=== PATIENT | female | born 1975 | race Hispanic/Latino ===

== ENCOUNTER → 2016-07-15 | Outpatient (CLI) | payer MEDICAID, OTHER ==
[2016-07-15 12:21] LABS: BASO % 0.2 % (0.0-1.0); EOS # 0.1 K/mm3 (0.0-0.50); EOS % 1.3 % (0.0-3.0); LARGE UNSTAINED CELL # 0.1 K/mm3 (0.0-0.4); LARGE UNSTAINED CELL % 1.3 % (0.0-4.0); LYMPH # 1.8 K/mm3 (1.5-4.5); MEAN CORPUSCULAR HEMOGLOBIN 32.3 pg (27.0-33.0); MEAN CORPUSCULAR HGB CONC 34.2 g/dl (32.0-36.5); MEAN CORPUSCULAR VOLUME 94.5 fl (80.0-96.0); MONO # 0.3 K/mm3 (0.0-0.8); NEUTROPHILS # 4.1 K/mm3 (1.8-7.7); NEUTROPHILS % 65.1 % (36.0-66.0); PLATELET COUNT, AUTOMATED 204 k/mm3 (150-450); RED CELL DISTRIBUTION WIDTH 13.1 % (11.5-14.5); WHITE BLOOD COUNT 6.2 K/mm3 (4.0-10.0)
[2016-07-16 10:22] LABS: HBsAg Prenatal NEGATIVE (NEGATIVE)
== END ==
LOC: M LAB 09:28
PROVIDERS: ATTEND Obstetrics & Gynecology
DX: Z34.81 Encounter for supervision of other normal pregnancy, first trimester (principal)

== ENCOUNTER → 2016-08-31 | Outpatient (REF) | payer OTHER | LOC: M LAB REF 12:45 | PROVIDERS: ATTEND Specialist | DX: Z34.81 Encounter for supervision of other normal pregnancy, first trimester (principal) ==

== ENCOUNTER 2016-09-09 23:06 | Emergency (ER) | payer OTHER ==
[~2016-09-09] VITALS: Ht 152.4 cm; Wt 62.1 kg
--- NOTE | 2016-09-10 02:50 | REPUSA ---
CLINICAL HISTORY: Bleeding. TECHNIQUE: Transabdominal ultrasound of the pelvis was performed. FINDINGS: Single, live intrauterine gestation. Estimated gestational age is 12 weeks and 6 days. [place] rump length 64 mm. heart rate 139 beats per minute. motion was observed. Anterior placenta. No evidence of placenta previa. Unremarkable maternal adnexa. No free fluid in the pelvic cul-de-sac. Estimated delivery date on 03/19/2017. 2 uterine fibroids are noted. Right fibroid measuring 5.8x5.1x5 cm. And the left fibroid measuring 4. 6x4.1 cm. IMPRESSION: Single intrauterine gestation.
[2016-09-10 04:06] VITALS: BP 91/55
== END 2016-09-10 04:07 | disposition home or self-care (01) ==
LOC: M ED 09-10 01:15
DX: O20.0 Threatened abortion (principal); O34.11 Maternal care for benign tumor of corpus uteri, first trimester; D25.9 Leiomyoma of uterus, unspecified; Z79.899 Other long term (current) drug therapy; Z3A.12 12 weeks gestation of pregnancy

== ENCOUNTER 2016-09-17 16:32 | Emergency (ER) | payer OTHER ==
[~2016-09-17] VITALS: Ht 162.6 cm; Wt 61.8 kg
[2016-09-17 17:27] LABS: BASO % 0.4 % (0.0-1.0); EOS # 0.1 K/mm3 (0.0-0.50); EOS % 0.9 % (0.0-3.0); LARGE UNSTAINED CELL # 0.1 K/mm3 (0.0-0.4); LARGE UNSTAINED CELL % 2.1 % (0.0-4.0); LYMPH # 2.2 K/mm3 (1.5-4.5); LYMPH % 32.8 % (24.0-44.0); MEAN CORPUSCULAR HEMOGLOBIN 32.7 pg (27.0-33.0); MEAN CORPUSCULAR HGB CONC 34.7 g/dl (32.0-36.5); MEAN CORPUSCULAR VOLUME 94.1 fl (80.0-96.0); MONO # 0.4 K/mm3 (0.0-0.8); MONO % 5.3 % (0.0-5.0); NEUTROPHILS # 3.9 K/mm3 (1.8-7.7); NEUTROPHILS % 58.6 % (36.0-66.0); PLATELET COUNT, AUTOMATED 212 k/mm3 (150-450); RED CELL DISTRIBUTION WIDTH 12.2 % (11.5-14.5); WHITE BLOOD COUNT 6.7 K/mm3 (4.0-10.0)
[2016-09-17 17:33] LABS: INR 0.97
[2016-09-17 17:45] LABS: CONTROL LINE HCG INT CTR LINE PRESENT
[2016-09-17 17:52] LABS: ANION GAP 7 MEQ/L (8-16); BLOOD UREA NITROGEN 8 MG/DL (7-18); CALCIUM LEVEL 8.8 MG/DL (8.5-10.1); CARBON DIOXIDE LEVEL 27 MEQ/L (21-32); CHLORIDE LEVEL 103 MEQ/L (98-107); CREATININE FOR GFR 0.43 MG/DL (0.55-1.02); GLOMERULAR FILTRATION RATE > 60.0 (>60); GLUCOSE, FASTING 96 MG/DL (70-105); POTASSIUM SERUM 3.7 MEQ/L (3.5-5.1); SODIUM LEVEL 137 MEQ/L (136-145)
[2016-09-17 18:37] LABS: HCG, SERUM QUANTITATIVE 972 MIU/ML
[2016-09-17 19:36] VITALS: BP 118/67
--- NOTE | 2016-09-17 20:38 | REP ---
Obstetric sonography: History: Vaginal bleeding. Comparison study September 10, 2016. Findings: Scanning demonstrates a single living intrauterine gestation in a variable lie. motion is observed and heart rate is recorded at 132 beats per minute. Amniotic fluid is subjectively normal. There is a cyst in the maternal right ovary measuring 1.4 cm in greatest diameter. There is evidence of a 5.3 x 4.8 x 4.5 cm fibroid to the left of midline in the uterus. A 1.8 x 2.0 x 1.6 cm area of myometrial thickening is also noted anteriorly. This may be fibroid or uterine contraction. The fibroids are in the region of the lower uterine segment and the cervix is not well seen as a result. The placenta is again noted to be anterior. It is too early for anatomic screening. Biometry chart: BPD 2.7 cm = 14 weeks 6 days HC 9.7 cm = 14 weeks 3 days AC 6.6 cm = 13 weeks 2 days FL 1.4 cm = 14 weeks 0 days HL 1.3 cm = 13 weeks 4 days HC/AC ratio 1.47 (1.11-1.30. Cephalic index normal 0.80. Estimated weight 82 grams, 0 pounds 2 ounces, less than 3rd percentile for 14 weeks 5 days. Impression: Viable single intrauterine gestation at 14 weeks 0 days by today's criteria. Expected gestational age estimate based on prior sonography is 14 weeks 5 days. PÉREZ by prior sonography March 13, 2017. Two uterine fibroids are again seen measuring 5.3 and 2.0 cm in greatest diameter respectively. Anterior placenta. Cervix not well visualized. Signed by Yousuf Dumont MD 09/18/2016 07:43 A
== END 2016-09-17 19:40 | disposition home or self-care (01) ==
LOC: M ED 17:20
DX: O20.0 Threatened abortion (principal); O34.11 Maternal care for benign tumor of corpus uteri, first trimester; D25.9 Leiomyoma of uterus, unspecified; O09.522 Supervision of elderly multigravida, second trimester; Z3A.14 14 weeks gestation of pregnancy

== ENCOUNTER → 2016-09-23 | Outpatient (CLI) | payer OTHER | LOC: M SMT 08:42 | PROVIDERS: ATTEND Specialist | DX: Z13.79 Encounter for other screening for genetic and chromosomal anomalies (principal) ==

== ENCOUNTER 2016-10-01 16:50 | Emergency (ER) | payer OTHER ==
[~2016-10-01] VITALS: Ht 160 cm; Wt 62.5 kg
[2016-10-01] MEDS ORDERED: PREN1TAB11 PO (17:20)
[2016-10-01] MEDS ORDERED: ACETAMINOPHEN 325 MG TAB PO ONE (18:00)
[2016-10-01] MEDS ORDERED: NS 1,000 ML IV ONE (18:15)
[2016-10-01 18:30] LABS: BASO % 0.3 % (0.0-1.0); EOS # 0.1 K/mm3 (0.0-0.50); EOS % 1.6 % (0.0-3.0); LARGE UNSTAINED CELL # 0.1 K/mm3 (0.0-0.4); LARGE UNSTAINED CELL % 2.1 % (0.0-4.0); LYMPH # 2.2 K/mm3 (1.5-4.5); MEAN CORPUSCULAR HEMOGLOBIN 32.6 pg (27.0-33.0); MEAN CORPUSCULAR HGB CONC 34.9 g/dl (32.0-36.5); MEAN CORPUSCULAR VOLUME 93.5 fl (80.0-96.0); MONO # 0.3 K/mm3 (0.0-0.8); NEUTROPHILS # 3.5 K/mm3 (1.8-7.7); PLATELET COUNT, AUTOMATED 229 k/mm3 (150-450); WHITE BLOOD COUNT 6.2 K/mm3 (4.0-10.0)
[2016-10-01 19:01] LABS: ANION GAP 7 MEQ/L (8-16); BLOOD UREA NITROGEN 9 MG/DL (7-18); CALCIUM LEVEL 9.1 MG/DL (8.5-10.1); CARBON DIOXIDE LEVEL 27 MEQ/L (21-32); CHLORIDE LEVEL 106 MEQ/L (98-107); CREATININE FOR GFR 0.38 MG/DL (0.55-1.02); GLOMERULAR FILTRATION RATE > 60.0 (>60); GLUCOSE, FASTING 90 MG/DL (70-105); HCG, SERUM QUANTITATIVE 352 MIU/ML; POTASSIUM SERUM 3.9 MEQ/L (3.5-5.1); SODIUM LEVEL 140 MEQ/L (136-145)
--- NOTE | 2016-10-01 19:10 | REPUSA ---
OBSTETRICAL ULTRASOUND INDICATION: OB screening. Vaginal bleeding. FINDINGS: A single live intrauterine gestation was identified with a heart rate of 139 bpm. Th e amniotic fluid volume appears below normal limits. The placenta was anterior, without evidence of placenta previa. Several uterine fibroids are noted. The cervix measures 2.7 cm in length and is beatris sed. Estimated weight is 112 g. Limited visualized anatomy is unremarkable. BIOMETRIC MEASUREMENTS BPD 3.2 cm HC 12.9 cm AC 7.8 cm FL 1.8 cm IMPRESSION: 1. Single live fetus based on today's measurements at 15 weeks 4 days, with estimated due date of . 2. No gross abnormality appreciated.. 3. Suspected oligohydramnios. Follow-up is recommended as clinically indicated. 4. Leiomyomatous uterus.
[2016-10-01 21:14] VITALS: BP 116/62
== END 2016-10-01 21:16 | disposition home or self-care (01) ==
LOC: M ED 16:50
DX: O20.9 Hemorrhage in early pregnancy, unspecified (principal); Z3A.15 15 weeks gestation of pregnancy

== ENCOUNTER → 2016-10-01 | Outpatient (CLI) | payer OTHER ==
[~2016-10-01] MED LIST: PREN1TAB11 PO
== END ==
LOC: M LAB 16:13
PROVIDERS: ATTEND Specialist
DX: O09.521 Supervision of elderly multigravida, first trimester (principal); Z36 Encounter for antenatal screening of mother; D25.9 Leiomyoma of uterus, unspecified; Z3A.15 15 weeks gestation of pregnancy

== ENCOUNTER → 2016-10-14 | Outpatient (CLI) | payer OTHER ==
--- NOTE | 2016-10-14 15:47 | REP ---
Obstetric sonography: History: Supervision of for anatomy. Findings: Scanning through the gravid uterus demonstrates a nonviable intrauterine gestation in a breech lie. No motion or heart motion was detected. There is some molding of the cranial vault. Closed cervical length is 3.5 cm. No extrauterine abnormalities observed. Oligohydramnios is seen. Placenta appears to be predominantly anterofundal. A posterior uterine leiomyoma is seen measuring 3.7 x 4.4 x 4.5 cm. measurement chart: BPD 2.9 cm = 15 weeks 2 days Head circumference 10.7 cm = 15 weeks 1 day Humeral length 1.7 cm = 14 weeks 5 days Impression: 1. Intrauterine demise at approximate 15 weeks 0 days. 2. Expected gestational age estimate based on prior sonography is 17 weeks 5 days, PÉREZ based on prior sonography March 19, 2017. 3. Oligohydramnios. 4. Uterine leiomyoma measuring 3.7 x 4.4 x 4.5 cm. Signed by Yousuf Dumont MD 10/14/2016 04:50 P
== END ==
LOC: M RAD 14:39
PROVIDERS: ATTEND Specialist
DX: Z36 Encounter for antenatal screening of mother (principal); Z3A.15 15 weeks gestation of pregnancy

== ENCOUNTER → 2016-10-15 | Outpatient (REF) | payer OTHER ==
[2016-11-01 06:40] LABS: CHROMPC1 SEE SEPARATE REPORT
== END ==
LOC: M LAB REF 18:50
PROVIDERS: ATTEND Obstetrics & Gynecology
DX: O03.9 Complete or unspecified spontaneous abortion without complication (principal)

== ENCOUNTER → 2016-10-25 | Outpatient (CLI) | payer OTHER ==
--- NOTE | 2016-10-26 04:49 | REP ---
Clinical: Evaluate for retained products of conception. Technique: Transabdominal pelvic ultrasound followed by transvaginal examination for better evaluation of the endometrium and adnexa with color Doppler evaluation of the ovaries. Findings: Bladder is unremarkable and measures 9.5 x 5.2 x 6.0 cm . Anteverted uterus measures 10.1 x 4.3 x 7.2 cm. The endometrial complex measures 8.2 mm thickness, and retained products of conception cannot definitively be excluded. Heterogeneous right intramural / subserosal fibroid measures 5.2 x 4.2 x 4.9 cm. Bilateral ovaries are normal in appearance and vascularity without evidence for torsion. Right ovary measures 2.8 x 1.7 x 2.7 cm ; R I = 0.56 . Left ovary measures 2.5 x 2.0 x 2.9 cm ; R I = 0.57 . No pelvic fluid or adnexal mass lesion . Impression: 1. Complex appearance the endometrium measuring 8.2 mm, and retained products of conception cannot be excluded. 2. 5.2 cm right sided fibroid. Signed by Perez Christian MD 10/26/2016 04:41 A
== END ==
LOC: M RAD 10:12
PROVIDERS: ATTEND Obstetrics & Gynecology
DX: O73.1 Retained portions of placenta and membranes, without hemorrhage (principal); R30.0 Dysuria; D25.9 Leiomyoma of uterus, unspecified

== ENCOUNTER → 2016-10-26 | Outpatient (CLI) | payer OTHER ==
[2016-10-26 18:10] LABS: FREE T4 1.08 NG/DL (0.76-1.46)
[2016-10-26 18:18] LABS: LUTEINIZING HORMONE 6.6 mIU/mL
[2016-10-26 18:19] LABS: FOLLICLE STIMULATING HORMONE 7.4 mIU/mL
== END ==
LOC: M SMT 14:08
PROVIDERS: ATTEND Obstetrics & Gynecology
DX: N96 Recurrent pregnancy loss (principal)

== ENCOUNTER → 2016-11-16 | Outpatient (REF) | payer OTHER | LOC: M LAB REF 13:06 | PROVIDERS: ATTEND Obstetrics & Gynecology | DX: R30.0 Dysuria (principal) ==

== ENCOUNTER → 2016-12-28 | Outpatient (CLI) | payer OTHER ==
[2016-12-28 10:03] LABS: MEAN CORPUSCULAR HEMOGLOBIN 31.5 pg (27.0-33.0); MEAN CORPUSCULAR VOLUME 95.6 fl (80.0-96.0); RED CELL DISTRIBUTION WIDTH 12.8 % (11.5-14.5); WHITE BLOOD COUNT 5.5 10^3/uL (4.0-10.0)
[2016-12-28 10:35] LABS: ALBUMIN 4.1 GM/DL (3.2-5.2); ALBUMIN/GLOBULIN RATIO 1.28 (1.00-1.93); ALKALINE PHOSPHATASE 63 U/L (45-117); ALT/SGPT 22 U/L (12-78); ANION GAP 6 MEQ/L (8-16); AST/SGOT 10 U/L (15-37); BILIRUBIN,TOTAL 0.3 MG/DL (0.2-1.0); BLOOD UREA NITROGEN 14 MG/DL (7-18); CALCIUM LEVEL 9.2 MG/DL (8.5-10.1); CARBON DIOXIDE LEVEL 28 MEQ/L (21-32); CHLORIDE LEVEL 107 MEQ/L (98-107); CHOLESTEROL LEVEL 221 MG/DL (<200); CREATININE FOR GFR 0.49 MG/DL (0.55-1.02); GLOMERULAR FILTRATION RATE > 60.0 (>60); GLUCOSE, FASTING 85 MG/DL (70-105); PERCENT SATURATION 28.8 % (13.2-45.0); POTASSIUM SERUM 4.3 MEQ/L (3.5-5.1); SODIUM LEVEL 141 MEQ/L (136-145); TOTAL IRON BINDING CAPACITY 309 UG/DL (250-450); TOTAL PROTEIN 7.3 GM/DL (6.4-8.2); TRIGLYCERIDES LEVEL 98 MG/DL (<150)
== END ==
LOC: M LAB 09:07
PROVIDERS: ATTEND Family Medicine
DX: D64.9 Anemia, unspecified (principal); R53.83 Other fatigue

== ENCOUNTER → 2017-01-03 | Outpatient (CLI) | payer OTHER ==
[~2017-01-03] MED LIST changes: +E-Z-GAS II EFFERVESCENT PACKET (SODIUM BICARB./CITRIC ACID/SIMETHICONE) As Ordered ONE; +E-Z-HD 98% w/w 340GM SUSP BTL As Ordered ONE; +E-Z-PAQUE 96% w/w SUSP 176GM BTL As Ordered ONE
--- NOTE | 2017-01-03 10:05 | REP ---
Right upper quadrant sonography: History: Epigastric pain. Findings: Scanning through the right upper quadrant of the abdomen demonstrates an unremarkable pancreas. The tail is partially obscured by abdominal gas. A normal size thin-wall gallbladder is seen. This contains a nonshadowing echogenic structure which is on its dependent wall. This may reflect a "sludge ball" versus a small polyp. It measures 5 mm in greatest diameter. There is a 1.2 cm hyperechoic lesion in the right lobe of the liver consistent with small benign hemangioma. No other liver mass lesion is observed. There is no evidence of ascites or right renal abnormality. The right kidney measures 11.2 x 5.4 x 3.8 cm. Impression: Sludge ball versus 5 mm polyp in the gallbladder. 1.2 cm hemangioma of the right lobe of the liver. Otherwise negative right upper quadrant sonography. Signed by oYusuf Dumont MD 01/03/2017 03:03 P
--- NOTE | 2017-01-03 10:29 | REP ---
PA and lateral chest: There are no comparisons. The lung sarah are clear. The cardiac size is normal The radha, mediastinum, and bony thorax are unremarkable. Impression: Negative PA and lateral chest. Signed by Fran Bruce MD 01/03/2017 10:20 A
--- NOTE | 2017-01-03 17:10 | REP ---
Upper GI air contrast The procedure was performed under the direct supervision of Dr. Dumont. The images were reviewed with Dr. Dumont. The developmental specialist film shows no organomegaly or pathological masses. The intestinal gas pattern is nonspecific. Liquid barium and gas producing crystals were given in the erect position as well as liquid barium in the prone oblique position in order to perform a double contrast upper GI examination. The oral and pharyngeal stages of deglutition are unremarkable. Esophageal transport is prompt and efficient and there is no esophagitis or stricture mucosal ring or hiatal hernia. Gastroesophageal reflux is not demonstrated on this examination. The stomach schneider are normally outlined . The rugal folds are smooth and regular. There is no gastritis neoplasm or ulcer disease. The duodenal schneider are normally outlined . The mucosal folds are smooth and regular. There is no duodenitis pancreatitis peptic ulcer disease or neoplasm. The visualized portion of the proximal small bowel appears normal in course and caliber. There is a small diverticulum in the transverse portion of the duodenum. Impression: There is a small diverticulum in the transverse portion of the duodenum, otherwise, unremarkable double contrast upper GI examination. 1 minute and 53 seconds of fluoro time was utilized for this procedure. Reviewed by RAUL Morrison 01/03/2017 04:12 PSigned by Yousuf Dumont MD 01/03/2017 05:01 P
== END ==
LOC: M RAD 08:41
PROVIDERS: ATTEND Family Medicine
DX: R10.13 Epigastric pain (principal); R13.10 Dysphagia, unspecified; R07.89 Other chest pain

== ENCOUNTER → 2017-05-04 | Outpatient (CLI) | payer OTHER ==
[2017-05-04 20:37] LABS: ESTRADIOL 56.6 PG/ML
[2017-05-04 20:37] LABS: LUTEINIZING HORMONE 3.8 mIU/mL; PROLACTIN 13.1 NG/ML
[2017-05-04 20:38] LABS: FOLLICLE STIMULATING HORMONE 4.7 mIU/mL
[2017-05-04 20:50] LABS: FREE T4 1.07 NG/DL (0.76-1.46); THYROID STIMULATING HORMONE 0.847 uIU/ML (0.358-3.740)
== END ==
LOC: M SMT 13:35
DX: N92.6 Irregular menstruation, unspecified (principal)
CPT/HCPCS: 83001

== ENCOUNTER → 2017-05-23 | Outpatient (CLI) | payer OTHER ==
[2017-05-23 17:16] LABS: PROGESTERONE 22.1 NG/ML
== END ==
LOC: M LAB 15:45
DX: N92.6 Irregular menstruation, unspecified (principal)
CPT/HCPCS: 84144

== ENCOUNTER → 2018-02-08 | Outpatient (CLI) | payer MEDICAID, SELFPAY, OTHER | LOC: M RAD 09:15 | DX: Z12.31 Encounter for screening mammogram for malignant neoplasm of breast (principal); Z80.3 Family history of malignant neoplasm of breast; N60.31 Fibrosclerosis of right breast; N60.32 Fibrosclerosis of left breast | CPT/HCPCS: 77067 ==

== ENCOUNTER → 2018-04-26 | Outpatient (REF) | payer SELFPAY ==
[~2018-04-26] MED LIST changes: -E-Z-GAS II EFFERVESCENT PACKET (SODIUM BICARB./CITRIC ACID/SIMETHICONE) As Ordered ONE; -E-Z-HD 98% w/w 340GM SUSP BTL As Ordered ONE; -E-Z-PAQUE 96% w/w SUSP 176GM BTL As Ordered ONE; +LETR2.5T2 PO; +LIDO1PAD TOP; +NORCOTAB PO; +VALI5TAB PO
[2018-04-28 14:42] LABS: HPV HYBRID CAPTURE II Negative (Negative)
== END ==
LOC: M LAB REF 12:15
PROVIDERS: ATTEND Specialist
DX: Z12.4 Encounter for screening for malignant neoplasm of cervix (principal)

== ENCOUNTER 2018-05-15 17:30 | Emergency (ER) | payer MEDICAID, OTHER, SELFPAY ==
[~2018-05-15] VITALS: Ht 160 cm; Wt 56.8 kg
[2018-05-15 17:30] VITALS: BP 104/52
[~2018-05-15 17:30] MED LIST changes: -LETR2.5T2 PO; -LIDO1PAD TOP; -NORCOTAB PO; -VALI5TAB PO
[2018-05-15] MEDS ORDERED: LETR2.5T2 PO (17:43)
[2018-05-15] MEDS ORDERED: diazePAM 10 MG TAB PO ONE (20:00)
[2018-05-15] MEDS ORDERED: KETOROLAC 60 MG/2 ML VIAL (J1885) IM ONE (20:00)
[2018-05-15] MEDS ORDERED: NORCO, ANEXSIA 5/325MG TABLET (HYDROcodone/ACETAMINOPHEN) PO ONE (22:00)
--- NOTE | 2018-05-15 22:09 | REPVR ---
EXAM: CT Lumbar Spine Without Contrast EXAM DATE/TIME: 05/15/2018 8:25 PM CLINICAL HISTORY: 42 years old, female; Pain; Low back pain; Additional info: PT tender, radiating to right leg TECHNIQUE: Axial computed tomography images of the lumbar spine without intravenous contrast. All CT scans at this facility use at least one of these dose optimization techniques: automated exposure control; mA and/or kV adjustment per patient size (includes targeted exams where dose is matched to clinical indication); or iterative reconstruction. Coronal and sagittal reformatted images were created and reviewed. COMPARISON: No relevant prior studies available. FINDINGS: No evidence of soft tissue abnormality. There is sclerosis and osteophyte formation of the SI joints. L5-S1: There is a large right paracentral disc extrusion with mild inferior migration of disc causing severe impression on the anterior right thecal sac and right S1 nerve. L4-L5: There is mild broad-based bulge of the disc. IMPRESSION: The L5-S1 level demonstrates large right paracentral disc extrusion with inferior migration of disc causing severe impression on the anterior right thecal sac and right S1 nerve root. Electronically signed by: Myron Rebolledo On 05/15/2018 22:08:58 PM
[2018-05-15] MEDS ORDERED: LIDO1PAD TOP (23:05)
[2018-05-15] MEDS ORDERED: NORCOTAB PO (23:05)
[2018-05-15] MEDS ORDERED: VALI5TAB PO (23:05)
[2018-05-15] MEDS ORDERED: NORCO 5/325MG TABLET (BULK FOR ED) PO ONE (23:15)
--- NOTE | 2018-05-16 12:35 | ED PDOC ---
Post-Departure Follow-Up dr john faxed formal report of ct ls spine for fu Marilynn Myers MD May 16, 2018 12:35
== END 2018-05-15 23:17 | disposition home or self-care (01) ==
LOC: M ED 17:30
DX: M51.17 Intervertebral disc disorders with radiculopathy, lumbosacral region (principal)
CPT/HCPCS: 72131; 81001; 81025; 96372; 99284; J1885

== ENCOUNTER 2018-06-26 07:51 | Outpatient (RCR) | payer SELFPAY ==
[~2018-06-26 07:51] MED LIST changes: +LETR2.5T2 PO; +LIDO1PAD TOP; +NORCOTAB PO; +VALI5TAB PO
== END 2018-07-02 ==
LOC: M PT 07:51
PROVIDERS: ATTEND Physician Assistant
DX: Z47.89 Encounter for other orthopedic aftercare (principal); M51.36 Other intervertebral disc degeneration, lumbar region; M47.896 Other spondylosis, lumbar region

== ENCOUNTER 2018-07-25 08:00 | Outpatient (RCR) | payer SELFPAY ==
[~2018-07-25 08:00] MED LIST changes: +HYDR-3715 PO; -NORCOTAB PO
== END 2018-08-01 ==
LOC: M PT 08:00
PROVIDERS: ATTEND Physician Assistant
DX: M54.5 Low back pain (principal)

== ENCOUNTER 2018-08-02 07:54 | Outpatient (RCR) | payer SELFPAY | END 2018-09-01 | LOC: M PT 07:54 | PROVIDERS: ATTEND Physician Assistant | DX: M51.36 Other intervertebral disc degeneration, lumbar region (principal) ==

== ENCOUNTER → 2019-01-11 | Outpatient (CLI) | payer MEDICAID, SELFPAY | LOC: M LAB 14:08 | PROVIDERS: ATTEND Obstetrics & Gynecology | DX: N96 Recurrent pregnancy loss (principal) ==

== ENCOUNTER → 2019-03-20 | Outpatient (CLI) | payer OTHER ==
[~2019-03-20] MED LIST changes: +OXYC1TAB23 PO; +PRENTAB53 PO
[2019-03-20 08:28] LABS: HEMATOCRIT 39.9 % (36.0-47.0); HEMOGLOBIN 12.8 g/dl (12.0-15.5); MEAN CORPUSCULAR HEMOGLOBIN 31.2 pg (27.0-33.0); MEAN CORPUSCULAR HGB CONC 32.1 g/dl (32.0-36.5); MEAN CORPUSCULAR VOLUME 97.3 fl (80.0-96.0); PLATELET COUNT, AUTOMATED 259 10^3/uL (150-450); WHITE BLOOD COUNT 6.7 10^3/uL (4.0-10.0)
[2019-03-20 09:04] LABS: ALBUMIN 3.8 GM/DL (3.2-5.2); ALT/SGPT 19 U/L (12-78); BILIRUBIN,TOTAL 0.4 MG/DL (0.2-1.0); BLOOD UREA NITROGEN 13 MG/DL (7-18); CALCIUM LEVEL 8.2 MG/DL (8.5-10.1); CARBON DIOXIDE LEVEL 24 MEQ/L (21-32); CHLORIDE LEVEL 109 MEQ/L (98-107); CHOLESTEROL LEVEL 240 MG/DL (<200); CHOLESTEROL RISK RATIO 4.705 (<5); CREATININE FOR GFR 0.57 MG/DL (0.55-1.30); GLOMERULAR FILTRATION RATE > 60.0 (>58); GLUCOSE, FASTING 89 MG/DL (70-100); HDL CHOLESTEROL 51 MG/DL (>40); LDL CHOLESTEROL 169 MG/DL (<100); NON-HDL-C 189 MG/DL; SODIUM LEVEL 142 MEQ/L (136-145); THYROXINE (T4) 8.9 UG/DL (4.5-12.0); TOTAL PROTEIN 6.9 GM/DL (6.4-8.2); TRIGLYCERIDES LEVEL 98 MG/DL (<150)
[2019-03-20 10:01] LABS: TOTAL 25(OH) VITAMIN D 40.7 NG/ML (30.0-100.0); TOTAL T3 103.3 NG/DL (60.0-181.0)
--- NOTE | 2019-03-20 11:21 | ECGEPIP ---
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
--- NOTE | 2019-03-20 15:34 | REP ---
Chest x-ray: Two views. History: Hypothyroid, hypertension . Comparison study: January 03, 2017 . Findings: The lungs are well inflated and free of infiltrate. The pleural angles are sharp. The heart size is normal. Pulmonary vasculature is not increased. No significant bony abnormality is seen. Impression: Negative chest x-ray. Electronically Signed by Yousuf Dumont MD 03/20/2019 08:04 A
== END ==
LOC: M LAB 07:39
PROVIDERS: ATTEND Family Medicine
DX: E03.9 Hypothyroidism, unspecified (principal); R53.83 Other fatigue

== ENCOUNTER → 2019-03-23 | Outpatient (CLI) | payer OTHER ==
[~2019-03-23] MED LIST changes: +IBUP-1022 PO
--- NOTE | 2019-03-23 10:58 | REPMRS ---
Patient History The patient states she has not had a clinical breast exam in over a year. Family history of breast cancer at age 58 in mother. Digital Mammo Screening Bilat: March 23, 2019 - Exam #: [id number] Bilateral CC and MLO view(s) were taken. Technologist: Susie Ocasio Technologist Prior study comparison: February 08, 2018, bilateral digital mammo screening bilat performed at [facility]. June 02, 2016, bilateral digital mammo screening bilat, [facility]. February 21, 2014, bilateral digital mammo screening bilat, performed [facility]. FINDINGS: The breast tissue is heterogeneously dense. This may lower the sensitivity of mammography. There is a moderate amount of heterogeneously dense fibroglandular tissue which is fairly symmetric. There is no interval development of dominant mass, architectural distortion, or grouped microcalcification typical of malignancy. There has been no change in the appearance of the mammogram from the prior studies. 3-D tomosynthesis shows no additional findings. Assessment: BI-RADS/ACR category 1 mammogram. Negative Mammogram. Recommendation Breast MRI of both breasts in 6 months. Routine screening mammogram of both breasts in 1 year (for women over age 40). This patient's Lifetime Breast Cancer RIsk is estimated at 22.8 %. Annual screening Breast MRI scanniing is recommended for patient's whose lifetime risk assessment is over 20%. This mammogram was interpreted with the aid of an FDA-approved computer-aided dectection system. Electronically Signed By: Bar Dumont MD 03/23/19 [id number]
== END ==
LOC: M RAD 09:31
PROVIDERS: ATTEND Obstetrics & Gynecology
DX: Z12.31 Encounter for screening mammogram for malignant neoplasm of breast (principal); Z80.3 Family history of malignant neoplasm of breast

== ENCOUNTER 2019-03-26 06:02 | Day surgery (SDC) | payer OTHER ==
[~2019-03-26] VITALS: Ht 157.5 cm; Wt 59.9 kg
[~2019-03-26 06:02] MED LIST changes: -IBUP-1022 PO; +LIDOCAINE 1% MDV 20ML VIAL SQ PRN; +LR 1,000 ML IV ONE
[2019-03-26 06:41] LABS: HEMATOCRIT 37.2 % (36.0-47.0); HEMOGLOBIN 12.2 g/dl (12.0-15.5); MEAN CORPUSCULAR HEMOGLOBIN 31.8 pg (27.0-33.0); MEAN CORPUSCULAR HGB CONC 32.8 g/dl (32.0-36.5); MEAN CORPUSCULAR VOLUME 96.9 fl (80.0-96.0); PLATELET COUNT, AUTOMATED 223 10^3/uL (150-450); RED BLOOD COUNT 3.84 10^6/uL (4.00-5.40); WHITE BLOOD COUNT 6.9 10^3/uL (4.0-10.0)
[2019-03-26] MEDS ORDERED: ONDANSETRON 4MG/2ML VIAL (J2405) As Ordered ONE (07:01)
[2019-03-26] MEDS ORDERED: LIDOCAINE 2% INJ 100 MG/5 ML SDV (FOR ANES.) As Ordered ONE (07:01)
[2019-03-26] MEDS ORDERED: KETOROLAC 60 MG/2 ML VIAL (J1885) As Ordered ONE (07:01)
[2019-03-26] MEDS ORDERED: dexameTHASONE 4 MG/ML 1ML VIAL (J1100) As Ordered ONE (07:01)
[2019-03-26] MEDS ORDERED: PROPOFOL 200 MG/20 ML VIAL As Ordered ONE (07:01)
[2019-03-26] MEDS ORDERED: ROCURONIUM BROMIDE 50 MG/5 ML VIAL As Ordered ONE (07:01)
[2019-03-26] MEDS ORDERED: fentaNYL 250 MCG/5 ML INJECTION (J3010) As Ordered ONE (07:08)
[2019-03-26] MEDS ORDERED: MIDAZOLAM INJ 2 MG/2 ML VIAL (J2250) As Ordered ONE (07:08)
[2019-03-26] MEDS ORDERED: BUPIVACAINE HCL 0.25% 10 ML VIAL As Ordered ONE (07:09)
[2019-03-26] MEDS ORDERED: BUPIVACAINE HCL 0.25% 30 ML VIAL As Ordered ONE (07:12)
[2019-03-26] MEDS ORDERED: LACRILUBE (AKWA TEARS) OPHTH OINT 3.5 GM As Ordered ONE (07:36)
[2019-03-26] MEDS ORDERED: ACETAMINOPHEN 1000MG 100ML IV BTL (OFIRMEV) (J0131 PER 10MG) As Ordered ONE (07:56)
[2019-03-26] MEDS ORDERED: SUGAMMADEX SODIUM 500 MG/5 ML VIAL (BRIDION) As Ordered ONE (07:59)
[2019-03-26] MEDS ORDERED: ONDANSETRON 4MG/2ML VIAL (J2405) IV PRN (10:00)
[2019-03-26] MEDS ORDERED: oxyCODONE 5MG TAB PO PRN (10:00)
[2019-03-26] MEDS ORDERED: METOCLOPRAMIDE INJ 10MG/2ML VIAL (J2765) IV PRN (10:00)
[2019-03-26] MEDS ORDERED: LR 1,000 ML IV SCH (10:00)
[2019-03-26] MEDS ORDERED: PERCOCET 5MG/325MG TAB PO PRN (10:00)
[2019-03-26] MEDS: fentaNYL 100 MCG/2 ML INJECTION (J3010) IV PRN ×2 (10:08→10:30)
[2019-03-26] MEDS ORDERED: OXYC1TAB23 PO (11:30)
[2019-03-26] MEDS ORDERED: IBUP-1022 PO (11:31)
[2019-03-26 13:15] VITALS: BP 97/52
--- NOTE | 2019-03-29 15:33 | RO ---
DATE OF OPERATION: 03/26/2019 PREOPERATIVE DIAGNOSIS: Symptomatic uterine fibroid. POSTOPERATIVE DIAGNOSIS: Symptomatic uterine fibroid. PROCEDURE: Robotic-assisted laparoscopic myomectomy. 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 ESTIMATED BLOOD LOSS: 450 mL. URINE OUTPUT: 300 mL. FINDINGS: 6 cm posterior fundal right-sided uterine fibroid and a second satellite fibroid adjacent to it in the midline. Normal ovaries. Normal left fallopian tube. Mild adhesions of the right fallopian tube of the right sidewall. Normal upper abdomen, including liver, gallbladder, stomach, intestines. DESCRIPTION OF PROCEDURE: Operative summary: Patient taken to the operating room where general endotracheal anesthesia was induced. She was prepped and draped in sterile fashion in dorsal lithotomy position. Snow catheter was placed. A Sentrinsic uterine manipulator was placed. Periumbilical incision was made with a scalpel. Veress needle was placed through this incision while tenting up on the skin of the abdomen. Intra-abdominal location of the Veress needle was assessed with the use of a saline-filled syringe. Pneumoperitoneum was created. The Veress needle was removed. 8 mm trocar using Visiport was inserted through this incision. Three 8 mm suprapubic ports were placed under direct visualization. Patient was placed in Trendelenburg position. The [email or web address] Ritesh surgical robot was docked to the ports. Monopolar EndoShears were used to create an incision in the uterine serosa overlying the fibroid. Bipolar fenestrated instrument was used to help dissect the fibroid from the underlying muscularis and serosa. Vessels were coagulated. Fibroid did appear to have a large vascular supply. Laparoscopic tenaculum was used to grasp the fibroid and traction. The adhesions of the fibroid to the muscularis were dissected. The fibroid appeared to protrude more. The fibroid was removed in its entirety. The base of the myometrium was closed with #1 V-Loc suture in a running fashion. The serosa was closed with V-Loc suture in a running fashion with good hemostasis noted. The robot was undocked. 5 mm laparoscope was placed through the port. An 11 mm trocar was placed in the midline. Specimen was placed in an Endo Catch bag and brought to the port surface. The fascia was opened slightly and the fibroid was morcellated in the bag and removed through the periumbilical port. Retractors were used to expose the fascia. The fascia was grasped and closed with #0 Vicryl in a running fashion. Skin was closed with #3-0 Monocryl subcuticular sutures. Sponge, instrument, and needle counts were correct. The patient was extubated and went to recovery room in stable condition.
== END 2019-03-26 13:55 | disposition home or self-care (01) ==
LOC: M SDC 06:02
PROVIDERS: ATTEND Specialist
DX: D25.9 Leiomyoma of uterus, unspecified (principal); M51.26 Other intervertebral disc displacement, lumbar region; J00 Acute nasopharyngitis [common cold]; Z79.899 Other long term (current) drug therapy
CPT/HCPCS: 36415; 58545; 81025; 85027; 88305; J0131; J1100; J1885; J2250; J2405; J2765; J3010

== ENCOUNTER → 2019-04-06 | Outpatient (CLI) | payer OTHER ==
[~2019-04-06] MED LIST changes: +IBUP-1022 PO; -LIDOCAINE 1% MDV 20ML VIAL SQ PRN; -LR 1,000 ML IV ONE
--- NOTE | 2019-04-06 12:12 | REP ---
Two-view chest: 04/06/2019. Indication: Pneumonia. Comparison: 03/20/2019. Findings: There is no focal airspace consolidation, oral effusion or pneumothorax. The cardiomediastinal silhouette is unremarkable. Impression: No acute cardiopulmonary process. Electronically Signed by Kilo Patel DO 04/06/2019 12:04 P
--- NOTE | 2019-04-07 19:06 | ECGEPIP ---
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
== END ==
LOC: M EKG 11:12
PROVIDERS: ATTEND Family Medicine
DX: J18.9 Pneumonia, unspecified organism (principal)

== ENCOUNTER → 2019-04-17 | Outpatient (REF) | payer OTHER, MEDICAID | LOC: M SFHCWAGY 17:06 | PROVIDERS: ATTEND Specialist | DX: Z01.419 Encounter for gynecological examination (general) (routine) without abnormal findings (principal) ==

== ENCOUNTER 2020-01-03 18:14 | Emergency (ER) | payer OTHER ==
[~2020-01-03] VITALS: Ht 160 cm; Wt 60.9 kg
[2020-01-03] MEDS ORDERED: ESTR2TAB2 (18:26)
[2020-01-03] MEDS ORDERED: [UNRECOGNIZED DRUG - CODE] IJ (18:26)
[2020-01-03] MEDS ORDERED: ENOX30IN3 SQ (18:26)
[2020-01-03] MEDS ORDERED: PRED10TA2 PO (18:26)
[2020-01-03] MEDS ORDERED: PROG1CAP9 (18:26)
[2020-01-03 18:58] LABS: BASO # 0.1 10^3/uL (0.0-0.2); BASO % 0.3 % (0.0-1.0); EOS % 0.1 % (0.0-3.0); HEMATOCRIT 35.9 % (36.0-47.0); HEMOGLOBIN 11.8 g/dl (12.0-15.5); LYMPH # 1.8 10^3/uL (1.5-5.0); LYMPH % 7.5 % (24.0-44.0); MEAN CORPUSCULAR HEMOGLOBIN 32.2 pg (27.0-33.0); MEAN CORPUSCULAR HGB CONC 32.9 g/dl (32.0-36.5); MEAN CORPUSCULAR VOLUME 97.8 fl (80.0-96.0); MONO # 0.4 10^3/uL (0.0-0.8); MONO % 1.9 % (0.0-5.0); NEUTROPHILS # 20.9 10^3/uL (1.5-8.5); PLATELET COUNT, AUTOMATED 234 10^3/uL (150-450); RED BLOOD COUNT 3.67 10^6/uL (4.00-5.40); WHITE BLOOD COUNT 23.5 10^3/uL (4.0-10.0)
[2020-01-03 19:46] LABS: BLOOD UREA NITROGEN 12 MG/DL (7-18); CALCIUM LEVEL 8.9 MG/DL (8.5-10.1); CARBON DIOXIDE LEVEL 25 MEQ/L (21-32); CHLORIDE LEVEL 106 MEQ/L (98-107); CREATININE FOR GFR 0.62 MG/DL (0.55-1.30); GLOMERULAR FILTRATION RATE > 60.0 (>58); GLUCOSE, FASTING 128 MG/DL (70-100); HCG, SERUM QUANTITATIVE 74835 MIU/ML; INR 0.98; POTASSIUM SERUM 4.2 MEQ/L (3.5-5.1); PROTHROMBIN TIME 13.1 SECONDS (12.5-14.3); SODIUM LEVEL 139 MEQ/L (136-145)
--- NOTE | 2020-01-03 20:58 | REPVR ---
PROCEDURE INFORMATION: Exam: US First Trimester, Transabdominal Exam date and time: 01/03/2020 7:58 PM Age: 44 years old Clinical indication: Lmp or gestational age (in weeks): 7; Other: Vag bleeding; ; Additional info: Vaginal bleeding, 8wks, on lovenox TECHNIQUE: Imaging protocol: Real-time transabdominal obstetrical ultrasound of the maternal pelvis and a first trimester , less than 14 weeks 0 days, with image documentation. COMPARISON: No relevant prior studies available. FINDINGS: Last menstrual period: LMP unknown. Gestation: Single gestational sac demonstrated within the uterus. Single fetus demonstrated within the gestational sac. Embryonic/ heart rate: heart rate is 139 bpm. BIOMETRY: Gestational age (AUA): [place]-rump length of the fetus is 11.7 mm corresponding to a gestational age of 7 weeks 3 days. MATERNAL: Uterus: Unremarkable. Cervix: Unremarkable. Right adnexa: Unremarkable. Left adnexa: Unremarkable. Intraperitoneal space: No intraperitoneal free fluid. IMPRESSION: Unremarkable 1st trimester scan at 7 weeks 3 days based on measurement of the crown-rump length. Electronically signed by: Jim Snow On 01/03/2020 20:58:32 PM
[2020-01-03 21:30] VITALS: BP 119/68
== END 2020-01-03 21:38 | disposition home or self-care (01) ==
LOC: M ED 18:14
DX: O26.851 Spotting complicating pregnancy, first trimester (principal); Z3A.01 Less than 8 weeks gestation of pregnancy; Z79.899 Other long term (current) drug therapy

== ENCOUNTER → 2020-01-17 | Outpatient (REF) | payer OTHER, MEDICAID ==
[~2020-01-17] MED LIST changes: +ENOX30IN3 SQ; +ESTR2TAB2; +PRED10TA2 PO; +PROG1CAP9; +[UNRECOGNIZED DRUG - CODE] IJ
== END ==
LOC: M PLALAB 09:46
PROVIDERS: ATTEND Obstetrics & Gynecology
DX: O26.20 Pregnancy care for patient with recurrent pregnancy loss, unspecified trimester (principal)

== ENCOUNTER → 2020-02-12 | Outpatient (REF) | payer OTHER, MEDICAID ==
[2020-02-12 18:09] LABS: HEMATOCRIT 34.7 % (36.0-47.0); HEMOGLOBIN 11.1 g/dl (12.0-15.5); MEAN CORPUSCULAR HEMOGLOBIN 31.5 pg (27.0-33.0); MEAN CORPUSCULAR VOLUME 98.6 fl (80.0-96.0); PLATELET COUNT, AUTOMATED 256 10^3/uL (150-450); RED BLOOD COUNT 3.52 10^6/uL (4.00-5.40); WHITE BLOOD COUNT 8.1 10^3/uL (4.0-10.0)
[2020-02-12 19:14] LABS: HIV 1&2 SCREEN CENTAUR NEGATIVE (NEGATIVE)
== END ==
LOC: M PLALAB 15:09
PROVIDERS: ATTEND Obstetrics & Gynecology
DX: O26.20 Pregnancy care for patient with recurrent pregnancy loss, unspecified trimester (principal)

== ENCOUNTER → 2020-04-01 | Outpatient (CLI) | payer OTHER ==
--- NOTE | 2020-04-01 09:45 | REP ---
INDICATION: ANATOMY COMPARISON: None. TECHNIQUE: Transabdominal obstetrical ultrasound with color Doppler evaluation. FINDINGS: Examination demonstrates a single live intrauterine in variable presentation. motion is identified by technologist. Placenta is noted posterior and grade 1 without evidence for placenta previa or abruption. Amniotic fluid volume is normal. Cervix measures 3.1 in length and appears closed.. Gestational age by LMP 19 weeks 6 days with PÉREZ 08/20/2020. Gestational age by current measurements 20 weeks 3 days with PÉREZ 08/16/2020. FHR equals 146 beats per minute. BPD: 4.8 cm 20 weeks 4 days HC: 17.6 cm 20 weeks 1 day AC: 15.3 cm 20 weeks 3 days FL: 3.4 cm 20 weeks 3 days HL: 3.2 cm 20 weeks 5 days HC/AC: 1.15 Estimated weight 355 grams (80thpercentile). Anatomical assessment demonstrates normal structures including cranium, choroid plexus, cavum, cerebellum/posterior fossa, facial features, lungs, four-chamber heart/ventricular outflow tracts, diaphragm, stomach, cord insertion/three-vessel cord, kidneys/bladder, spine, and extremities. IMPRESSION: Single live intrauterine in variable presentation demonstrating appropriate interval growth. Anatomical assessment is complete and normal. <Electronically signed by Perez Christian > 04/01/20 [id number]
== END ==
LOC: M WHC 08:39
PROVIDERS: ATTEND Obstetrics & Gynecology
DX: Z34.82 Encounter for supervision of other normal pregnancy, second trimester (principal)

== ENCOUNTER → 2020-05-13 | Outpatient (REF) | payer OTHER, MEDICAID ==
[2020-05-13 15:30] LABS: HEMATOCRIT 37.9 % (36.0-47.0); HEMOGLOBIN 12.3 g/dl (12.0-15.5); MEAN CORPUSCULAR HEMOGLOBIN 32.5 pg (27.0-33.0); MEAN CORPUSCULAR HGB CONC 32.5 g/dl (32.0-36.5); PLATELET COUNT, AUTOMATED 204 10^3/uL (150-450); RED BLOOD COUNT 3.79 10^6/uL (4.00-5.40); WHITE BLOOD COUNT 7.4 10^3/uL (4.0-10.0)
== END ==
LOC: M PLALAB 09:54
PROVIDERS: ATTEND Obstetrics & Gynecology
DX: O34.211 Maternal care for low transverse scar from previous cesarean delivery (principal)

== ENCOUNTER → 2020-06-09 | Outpatient (CLI) | payer OTHER, MEDICAID ==
--- NOTE | 2020-06-09 09:14 | REP ---
INDICATION: BENIGN TUMOR OF CORPUS UTERI,GROWTH COMPARISON: 04/01/2020 TECHNIQUE: Transabdominal obstetrical ultrasound with color Doppler evaluation. FINDINGS: Examination demonstrates a single live intrauterine in cephalic presentation. motion is identified by technologist. Placenta is noted posterior and grade 2 without evidence for placenta previa or abruption. Amniotic fluid volume is normal. Cervix measures 3.1 cm in length and appears closed.. Gestational age by 1st ultrasound 29 weeks 5 days with PÉREZ 08/20/2020. Gestational age by current measurements 30 weeks 5 days with PÉREZ 08/13/2020. FHR equals 146 beats per minute. BPD: 7.7 cm at 30 weeks 6 days HC: 28.1 cm at 30 weeks 6 days AC: 26.5 cm at 30 weeks 4 days FL: 5.8 cm at 30 weeks 2 days HL: 5.4 cm at 31 weeks 1 day HC/AC: 1.06 Estimated weight 1598 grams (63rdpercentile). EDWAR: 15.7 cm (9.0-23.4) IMPRESSION: Single live intrauterine in cephalic presentation demonstrating relatively appropriate estimated weight and growth. <Electronically signed by Peerz Christian > 06/09/20 [id number]
== END ==
LOC: M WHC 07:35
PROVIDERS: ATTEND Obstetrics & Gynecology
DX: O34.13 Maternal care for benign tumor of corpus uteri, third trimester (principal); Z3A.30 30 weeks gestation of pregnancy

== ENCOUNTER → 2020-06-23 | Outpatient (REF) | payer OTHER, MEDICAID ==
[2020-06-23 14:05] LABS: HEMATOCRIT 35.8 % (36.0-47.0); HEMOGLOBIN 12.1 g/dl (12.0-15.5); MEAN CORPUSCULAR HEMOGLOBIN 33.9 pg (27.0-33.0); MEAN CORPUSCULAR HGB CONC 33.8 g/dl (32.0-36.5); MEAN CORPUSCULAR VOLUME 100.3 fl (80.0-96.0); PLATELET COUNT, AUTOMATED 184 10^3/uL (150-450); RED BLOOD COUNT 3.57 10^6/uL (4.00-5.40); WHITE BLOOD COUNT 7.8 10^3/uL (4.0-10.0)
[2020-06-23 16:09] LABS: ALBUMIN 2.8 GM/DL (3.2-5.2); BILIRUBIN,DIRECT 0.1 MG/DL (0.0-0.2); BILIRUBIN,TOTAL 0.3 MG/DL (0.2-1.0); TOTAL PROTEIN 5.8 GM/DL (6.4-8.2)
== END ==
LOC: M PLALAB 10:13
PROVIDERS: ATTEND Obstetrics & Gynecology
DX: O09.529 Supervision of elderly multigravida, unspecified trimester (principal)

== ENCOUNTER → 2020-06-26 | Outpatient (CLI) | payer OTHER ==
--- NOTE | 2020-06-26 09:49 | REP ---
INDICATION: ELDERLY MULTIGRAVIDA,BPP. COMPARISON: Obstetric ultrasound dated 06/09/2020. TECHNIQUE: Multiple sonographic images of the gravid uterus. FINDINGS: There is a single intrauterine gestation in a cephalic presentation. The placenta is posterior with grade 2 maturity. There is no previa. heart rate is 140 beats per minute. Amniotic fluid volume subjectively is normal. Amniotic fluid index is 14.7. Normal is 8.5-24.3. biophysical profile: Breathing 2 Tone 2 Movement 2 Amniotic fluid volume 2 Total 11/09. Umbilical artery Doppler assessment: Umbilical artery 1: PSV 48.2 centimeters/second EDV 21.9 centimeters/second S/D 2.2 (1.83-3.84) RI 0.55 (0.49-0.75) Umbilical artery 2: PSV 35.1 centimeters/second EDV 14.1 centimeters/second S/D 2.49 RI 0.60 Gestational age by the 1st ultrasound is 32 weeks 1 day with an PÉREZ of 08/20/2020. IMPRESSION: The biophysical profile is 8/8. <Electronically signed by Fran Bruce > 06/26/20 0945
== END ==
LOC: M WHC 08:35
PROVIDERS: ATTEND Obstetrics & Gynecology
DX: O09.523 Supervision of elderly multigravida, third trimester (principal); O34.211 Maternal care for low transverse scar from previous cesarean delivery; Z3A.32 32 weeks gestation of pregnancy

== ENCOUNTER → 2020-07-07 | Outpatient (CLI) | payer OTHER ==
[~2020-07-07] MED LIST changes: +ECOT81TA5 PO
--- NOTE | 2020-07-08 11:45 | REP ---
INDICATION: GROWTH COMPARISON: 06/26/2020 TECHNIQUE: Transabdominal obstetrical ultrasound with color Doppler evaluation. FINDINGS: Examination demonstrates a single live intrauterine in cephalic presentation. motion is identified by technologist. Placenta is noted posterior/fundal and grade 2 without evidence for placenta previa or abruption. Amniotic fluid volume is normal. Cervix measures 3.2 cm in length and appears closed.. Gestational age by LMP 33 weeks 6 days with PÉREZ 08/19/2020 Gestational age by 1st ultrasound 33 weeks 5 days with PÉREZ 08/20/2020. Gestational age by current measurements 34 weeks 4 days with PÉREZ 08/14/2020. FHR equals 156 beats per minute. BPD: 8.8 cm at 35 weeks 4 days HC: 30.9 cm at 34 weeks 4 days AC: 31.2 cm at 35 weeks 1 day FL: 6.6 cm at 34 weeks 0 days HL: 5.8 cm at 33 weeks 4 days HC/AC: 0.99 Estimated weight 2518 grams (71stpercentile). EDWAR: 15.4 cm IMPRESSION: Single live intrauterine in cephalic presentation demonstrating appropriate estimated weight and growth. <Electronically signed by Perez Christian > 07/08/20 [id number]
== END ==
LOC: M WHC 15:17
PROVIDERS: ATTEND Obstetrics & Gynecology
DX: Z36.2 Encounter for other antenatal screening follow-up (principal); O09.523 Supervision of elderly multigravida, third trimester; O34.211 Maternal care for low transverse scar from previous cesarean delivery; Z3A.34 34 weeks gestation of pregnancy

== ENCOUNTER → 2020-07-16 | Outpatient (REF) | payer OTHER, MEDICAID | LOC: M SFHCWAGY 17:10 | PROVIDERS: ATTEND Obstetrics & Gynecology | DX: O34.211 Maternal care for low transverse scar from previous cesarean delivery (principal) ==

== ENCOUNTER → 2020-07-17 | Outpatient (CLI) | payer OTHER, MEDICAID ==
[~2020-07-17] MED LIST changes: +PRENTAB9 PO
== END ==
LOC: M LABSMTC 09:33
PROVIDERS: ATTEND Anesthesiology
DX: Z01.812 Encounter for preprocedural laboratory examination (principal); Z20.822 Contact with and (suspected) exposure to COVID-19

== ENCOUNTER 2020-07-19 09:54 | Outpatient (CLI) | payer MEDICAID, OTHER ==
[~2020-07-19] VITALS: Ht 157.5 cm; Wt 71.6 kg
[~2020-07-19 09:54] MED LIST changes: -PRENTAB9 PO
[2020-07-19] MEDS ORDERED: PRENTAB9 PO (10:08)
[2020-07-19] MEDS ORDERED: BETAMETHASONE SOLUSPAN 6MG/ML 5ML VIAL (J0702 PER 3MG) IM SCH (10:15)
--- NOTE | 2020-07-19 18:28 | IPNPDOC ---
Text Note Date of Service The patient was seen on 07/19/20. NOTE L&D Triage note: S: 44yo at 35w4d presents for betamethasone. She has h/o myomectomy and will be having repeat c/s Tuesday. Denies vaginal bleeding, LOF or ctx. Has increasing pelvic pressure. Reports active movement. O: vss, AF Cat 1 tracing gen: well appearing, NAD Abd: soft, nttp, gravid A/P: 44yo at 35w4d s/p betamethasone. Reassuring status -home with PTL precautions and [facility] -return tomorrow for 2nd shot MD WILIAN Marin KENYA MD. Jul 19, 2020 18:28
== END 2020-07-19 10:53 | disposition home or self-care (01) ==
LOC: M LDO 09:54
PROVIDERS: ATTEND Obstetrics & Gynecology
DX: O09.513 Supervision of elderly primigravida, third trimester (principal); Z3A.35 35 weeks gestation of pregnancy
CPT/HCPCS: 96372; J0702

== ENCOUNTER 2020-07-20 09:36 | Outpatient (CLI) | payer OTHER, MEDICAID ==
[~2020-07-20] VITALS: Ht 157.5 cm; Wt 71.4 kg
[~2020-07-20 09:36] MED LIST changes: +PRENTAB9 PO
[2020-07-20 09:54] VITALS: BP 103/54
[2020-07-20] MEDS ORDERED: BETAMETHASONE SOLUSPAN 6MG/ML 5ML VIAL (J0702 PER 3MG) IM ONE (10:00)
[2020-07-23] MEDS ORDERED: IBUP80TA PO (12:42)
[2020-07-23] MEDS ORDERED: PERCOCET PO ×2 (12:42→12:44)
--- NOTE | 2020-08-10 17:08 | IPNPDOC ---
Text Note Date of Service The patient was seen on 07/20/20. NOTE L&D Triage note: S: 44yo at 35w5d presents for betamethasone. She has h/o myomectomy and will be having repeat c/s Tuesday. Denies vaginal bleeding, LOF or ctx. Has increasing pelvic pressure. Reports active movement. O: vss, AF gen: well appearing, NAD Abd: soft, nttp, gravid A/P: 44yo at 35w5d s/p betamethasone. Reassuring status -home with PTL precautions and C MD WILIAN Marin KENYA MD. August 10, 2020 17:08
== END 2020-07-20 10:17 | disposition home or self-care (01) ==
LOC: M LDO 09:36
PROVIDERS: ATTEND Obstetrics & Gynecology
DX: Z29.8 Encounter for other specified prophylactic measures (principal); Z3A.35 35 weeks gestation of pregnancy; Z79.899 Other long term (current) drug therapy
CPT/HCPCS: 96372; J0702

== ENCOUNTER → 2020-11-18 | Outpatient (CLI) | payer OTHER ==
[~2020-11-18] MED LIST changes: +IBUP80TA PO; +PERCOCET PO
--- NOTE | 2020-11-18 10:58 | REP ---
INDICATION: Lactating patient with a focal palpable lump in the medial immediate retroareolar region COMPARISON: None TECHNIQUE: Real-time sonographic evaluation of the right breast, as described above, with shear wave elastography and anatomical intelligence. FINDINGS: In the retroareolar region of the right breast subjacent to a palpable mass there is an oval-shaped 0.6 x 0.4 x 0.5 cm sized completely anechoic structure which exhibits posterior wall enhancement and increased through transmission. Shear wave elastography was performed on this showing very low kPa values. IMPRESSION: Simple right breast cyst as described above. ACR category 2 benign findings. As per the ACR appropriateness criteria there is no need to withhold diagnostic mammography in lactating females. The breast can be pumped prior to diagnostic mammography for increased resolution. <Electronically signed by Emeterio Nuno > 11/18/20 1056
== END ==
LOC: M WHC 08:48
PROVIDERS: ATTEND Obstetrics & Gynecology
DX: N63.0 Unspecified lump in unspecified breast (principal); R92.2 Inconclusive mammogram

== ENCOUNTER → 2020-12-10 | Outpatient (REF) | payer OTHER, MEDICAID | LOC: M SFHCWAGY 12:48 | PROVIDERS: ATTEND Obstetrics & Gynecology | DX: Z12.4 Encounter for screening for malignant neoplasm of cervix (principal) ==

== ENCOUNTER → 2021-01-09 | Outpatient (CLI) | payer OTHER, SELFPAY ==
[~2021-01-09] MED LIST changes: -ESTR2TAB2; +ESTR2TAB3
--- NOTE | 2021-01-09 13:19 | REP ---
INDICATION: RIGHT BREAST LUMP. Patient is post a targeted right breast sonography for this same symptom November 18, 2020. A benign cyst was observed sonographically. The patient reports a palpable lump, smaller in size than a PE unchanged in since the November 18, 2020 ultrasound. COMPARISON: Comparison mammography is from March 23, 2019. Comparison sonography November 18, 2020. TECHNIQUE: Bilateral CC and MLO) view(s) were taken. A skin marker is affixed to the skin at the site of the palpable lump in the right breast. 3D tomography is utilized. FINDINGS: Breast parenchyma is heterogeneously dense in a pattern which may inhibit the sensitivity of mammography. There is no dominant density, mass, architectural distortion, or microcalcification in either breast. Breast parenchyma at the site of the palpable lump a skin marker is unremarkable. 3D tomography images show no additional abnormality. The Volpara volumetric breast density pattern is D. IMPRESSION: BIRADS/ACR category 1 negative mammogram. This patient's estimated Tyrer-Cuzick lifetime risk assessment for breast cancer is 22.5%. Enhanced screening in the form of annual bilateral breast MRI scanning is warranted. Bilateral breast MRI scanning is recommended annually, beginning 6 months from now. This mammogram was interpreted with the aid of an FDA-approved computer-aided detection system. The patient states she had a clinical breast exam in November of 2020. The patient letter being requested is M2 dense. RECOMMENDATION: Repeat screening mammography recommended 1 year (for women over 40). Screening breast MRI scanning in 6 months. <Electronically signed by Bar Dumont > 01/09/21 [id number]
== END ==
LOC: M WHC 11:01
PROVIDERS: ATTEND Obstetrics & Gynecology
DX: R92.2 Inconclusive mammogram (principal)
CPT/HCPCS: 77066; G0279

== ENCOUNTER → 2021-03-04 | Outpatient (CLI) | payer MEDICAID, SELFPAY ==
[~2021-03-04] MED LIST changes: +OMEGCAP4 PO
[2021-03-04 17:44] VITALS: BP 112/72
== END ==
LOC: M WHCPRO 15:46
PROVIDERS: ATTEND Surgery
DX: N60.01 Solitary cyst of right breast (principal)

== ENCOUNTER → 2021-06-24 | Outpatient (CLI) | payer MEDICAID, SELFPAY | LOC: M WHC 08:07 | PROVIDERS: ATTEND Nurse Practitioner Women's Health | DX: N63.10 Unspecified lump in the right breast, unspecified quadrant (principal) | CPT/HCPCS: 76642; 77065; G0279 ==

== ENCOUNTER 2021-07-30 00:13 | Emergency (ER) | payer OTHER, MEDICAID ==
[~2021-07-30] VITALS: Ht 157.5 cm; Wt 58.7 kg
[2021-07-30] MEDS ORDERED: LOVE1INJ SC (01:10)
[2021-07-30] MEDS ORDERED: PRED5CON PO (01:12)
[2021-07-30] MEDS ORDERED: [UNRECOGNIZED DRUG - CODE] IJ (01:12)
[2021-07-30] MEDS ORDERED: NS 1,000 ML IV ONE (02:00)
[2021-07-30 03:11] LABS: BASO # 0.1 10^3/uL (0.0-0.2); BASO % 0.4 % (0.0-1.0); HEMOGLOBIN 13.2 g/dl (12.0-15.5); LYMPH # 1.7 10^3/uL (1.5-5.0); LYMPH % 6.2 % (24.0-44.0); MEAN CORPUSCULAR HEMOGLOBIN 32.8 pg (27.0-33.0); MEAN CORPUSCULAR HGB CONC 33.8 g/dl (32.0-36.5); MONO # 1.2 10^3/uL (0.0-0.8); MONO % 4.3 % (2.0-8.0); NEUTROPHILS # 24.1 10^3/uL (1.5-8.5); NEUTROPHILS % 87.4 % (36.0-66.0); PLATELET COUNT, AUTOMATED 193 10^3/uL (150-450); RED BLOOD COUNT 4.02 10^6/uL (4.00-5.40); WHITE BLOOD COUNT 27.6 10^3/uL (4.0-10.0)
[2021-07-30 03:37] LABS: ALBUMIN 3.7 GM/DL (3.2-5.2); ALT/SGPT 22 U/L (12-78); BILIRUBIN,DIRECT 0.1 MG/DL (0.0-0.2); BILIRUBIN,TOTAL 0.3 MG/DL (0.2-1.0); BLOOD UREA NITROGEN 17 MG/DL (7-18); CALCIUM LEVEL 8.1 MG/DL (8.5-10.1); CARBON DIOXIDE LEVEL 30 MEQ/L (21-32); CHLORIDE LEVEL 107 MEQ/L (98-107); GLOMERULAR FILTRATION RATE > 60.0 (>58); GLUCOSE, FASTING 108 MG/DL (70-100); LIPASE 67 U/L (73-393); POTASSIUM SERUM 3.5 MEQ/L (3.5-5.1); SODIUM LEVEL 142 MEQ/L (136-145); TOTAL PROTEIN 6.2 GM/DL (6.4-8.2)
[2021-07-30 03:37] LABS: CK-MB VALUE MASS < 1.0 NG/ML (<3.6); CPK CREATINE PHOSPHOKINASE 21 U/L (26-192); MB/CK RELATIVE INDEX 4.76 (< OR =4)
[2021-07-30 04:57] LABS: CK-MB VALUE MASS < 1.0 NG/ML (<3.6); CPK CREATINE PHOSPHOKINASE 22 U/L (26-192); MB/CK RELATIVE INDEX 4.55 (< OR =4)
[2021-07-30 08:00] VITALS: BP 90/52
[2021-07-30 08:34] LABS: BASO # 0.1 10^3/uL (0.0-0.2); BASO % 0.3 % (0.0-1.0); EOS % 0.1 % (0.0-3.0); HEMATOCRIT 36.4 % (36.0-47.0); HEMOGLOBIN 12.2 g/dl (12.0-15.5); LYMPH # 1.5 10^3/uL (1.5-5.0); LYMPH % 5.1 % (24.0-44.0); MEAN CORPUSCULAR HEMOGLOBIN 32.5 pg (27.0-33.0); MEAN CORPUSCULAR HGB CONC 33.5 g/dl (32.0-36.5); MEAN CORPUSCULAR VOLUME 97.1 fl (80.0-96.0); MONO % 3.5 % (2.0-8.0); NEUTROPHILS # 26.2 10^3/uL (1.5-8.5); NEUTROPHILS % 89.4 % (36.0-66.0); PLATELET COUNT, AUTOMATED 175 10^3/uL (150-450); RED BLOOD COUNT 3.75 10^6/uL (4.00-5.40); WHITE BLOOD COUNT 29.3 10^3/uL (4.0-10.0)
[2021-07-30 09:10] LABS: ALBUMIN 3.1 GM/DL (3.2-5.2); ALT/SGPT 20 U/L (12-78); BILIRUBIN,DIRECT < 0.1 MG/DL (0.0-0.2); BILIRUBIN,TOTAL 0.3 MG/DL (0.2-1.0); BLOOD UREA NITROGEN 12 MG/DL (7-18); CALCIUM LEVEL 7.7 MG/DL (8.5-10.1); CARBON DIOXIDE LEVEL 26 MEQ/L (21-32); CHLORIDE LEVEL 111 MEQ/L (98-107); GLOMERULAR FILTRATION RATE > 60.0 (>58); GLUCOSE, FASTING 97 MG/DL (70-100); LIPASE 50 U/L (73-393); POTASSIUM SERUM 3.5 MEQ/L (3.5-5.1); SODIUM LEVEL 142 MEQ/L (136-145); TOTAL PROTEIN 5.5 GM/DL (6.4-8.2)
[2021-07-30 09:26] LABS: HCG, SERUM QUALITATIVE POSITIVE (NEGATIVE)
[2021-07-30] MEDS ORDERED: GASTROGRAFIN SOLUTION 30ML PO SCH (09:45)
== END 2021-07-30 10:08 | disposition home or self-care (01) ==
LOC: M ED 00:13
DX: R10.9 Unspecified abdominal pain (principal); E78.5 Hyperlipidemia, unspecified; K57.30 Diverticulosis of large intestine without perforation or abscess without bleeding; Z79.899 Other long term (current) drug therapy

== ENCOUNTER → 2022-01-01 | Outpatient (CLI) | payer MEDICAID, OTHER ==
[~2022-01-01] MED LIST changes: +LOVE1INJ SC; +PRED5CON PO
== END ==
LOC: M WHC 10:32
PROVIDERS: ATTEND Nurse Practitioner Women's Health
DX: N60.99 Unspecified benign mammary dysplasia of unspecified breast (principal); Z98.890 Other specified postprocedural states

== ENCOUNTER → 2022-05-14 | Outpatient (CLI) | payer OTHER | LOC: M PLALAB 11:47 | PROVIDERS: ATTEND Obstetrics & Gynecology | DX: O26.20 Pregnancy care for patient with recurrent pregnancy loss, unspecified trimester (principal) ==

== ENCOUNTER → 2022-05-17 | Outpatient (CLI) | payer OTHER | LOC: M PLALAB 09:49 | PROVIDERS: ATTEND Obstetrics & Gynecology | DX: O26.20 Pregnancy care for patient with recurrent pregnancy loss, unspecified trimester (principal); Z36.89 Encounter for other specified antenatal screening; Z3A.00 Weeks of gestation of pregnancy not specified ==

== ENCOUNTER → 2022-06-04 | Outpatient (CLI) | payer OTHER | LOC: M PLALAB 11:16 | PROVIDERS: ATTEND Obstetrics & Gynecology | DX: O03.9 Complete or unspecified spontaneous abortion without complication (principal) ==

== ENCOUNTER → 2022-06-25 | Outpatient (CLI) | payer OTHER | LOC: M EKG 07:28 | PROVIDERS: ATTEND Physician Assistant | DX: R07.9 Chest pain, unspecified (principal); R00.1 Bradycardia, unspecified; I45.19 Other right bundle-branch block ==

== ENCOUNTER → 2022-08-02 | Outpatient (REF) | payer OTHER | LOC: M SFHCWAGY 13:07 | PROVIDERS: ATTEND Obstetrics & Gynecology | DX: D12.4 Benign neoplasm of descending colon (principal) ==

== ENCOUNTER → 2022-08-11 | Outpatient (CLI) | payer OTHER | LOC: M WHC 06:45 | PROVIDERS: ATTEND Obstetrics & Gynecology | DX: Z12.31 Encounter for screening mammogram for malignant neoplasm of breast (principal) ==

== ENCOUNTER → 2022-11-12 | Outpatient (CLI) | payer OTHER ==
[2022-11-12 10:27] LABS: ALBUMIN 3.8 G/DL (3.2-5.2); ALKALINE PHOSPHATASE 62 U/L (46-116); ALT/SGPT 13 U/L (7.0-40); AST/SGOT < 8 U/L (<34); BILIRUBIN,TOTAL 0.5 MG/DL (0.3-1.2); BLOOD UREA NITROGEN 11 MG/DL (9-23); CALCIUM LEVEL 8.4 MG/DL (8.5-10.1); CARBON DIOXIDE LEVEL 25 MMOL/L (20-31); CHLORIDE LEVEL 107 MMOL/L (98-107); CHOLESTEROL LEVEL 201 MG/DL (<200); CHOLESTEROL RISK RATIO 3.77 (<5); CREATININE FOR GFR 0.52 MG/DL (0.55-1.30); GLOMERULAR FILTRATION RATE > 60.0 (>58); GLUCOSE, FASTING 85 MG/DL (60-100); HDL CHOLESTEROL 53.2 MG/DL (>40); LDL CHOLESTEROL 127.6 MG/DL (<100); NON-HDL-C 147.8 MG/DL; POTASSIUM SERUM 4.1 MMOL/L (3.5-5.1); SODIUM LEVEL 140 MMOL/L (136-145); TOTAL PROTEIN 6.6 G/DL (5.7-8.2); TRIGLYCERIDES LEVEL 101 MG/DL (<150)
== END ==
LOC: M LAB 09:05
PROVIDERS: ATTEND Physician Assistant
DX: E78.5 Hyperlipidemia, unspecified (principal)

== ENCOUNTER → 2022-11-12 | Outpatient (CLI) | payer OTHER | LOC: M WHC 07:44 | PROVIDERS: ATTEND Obstetrics & Gynecology | DX: D25.9 Leiomyoma of uterus, unspecified (principal) ==

== ENCOUNTER → 2022-12-07 | Outpatient (REF) | payer OTHER, MEDICAID ==
[2022-12-07 12:33] LABS: ALBUMIN 3.5 G/DL (3.2-5.2); ALKALINE PHOSPHATASE 62 U/L (46-116); ALT/SGPT 13 U/L (7.0-40); AST/SGOT < 8 U/L (<34); BILIRUBIN,TOTAL 0.4 MG/DL (0.3-1.2); BLOOD UREA NITROGEN 14 MG/DL (9-23); CALCIUM LEVEL 7.9 MG/DL (8.5-10.1); CARBON DIOXIDE LEVEL 26 MMOL/L (20-31); CHLORIDE LEVEL 109 MMOL/L (98-107); CHOLESTEROL LEVEL 184 MG/DL (<200); CHOLESTEROL RISK RATIO 3.25 (<5); GLOMERULAR FILTRATION RATE > 60.0 (>58); GLUCOSE, FASTING 86 MG/DL (60-100); HDL CHOLESTEROL 56.5 MG/DL (>40); LDL CHOLESTEROL 112.9 MG/DL (<100); NON-HDL-C 127.5 MG/DL; POTASSIUM SERUM 4.3 MMOL/L (3.5-5.1); SODIUM LEVEL 141 MMOL/L (136-145); TRIGLYCERIDES LEVEL 73 MG/DL (<150)
== END ==
LOC: M LAB REF 11:21
PROVIDERS: ATTEND Physician Assistant
DX: E78.5 Hyperlipidemia, unspecified (principal)

== ENCOUNTER → 2022-12-20 | Outpatient (REF) | payer OTHER, MEDICAID ==
[2022-12-20 17:51] LABS: BASO % 0.3 % (0.0-1.0); EOS # 0.1 10^3/uL (0.0-0.5); HEMATOCRIT 36.6 % (36.0-47.0); HEMOGLOBIN 11.9 g/dl (12.0-15.5); LYMPH # 1.7 10^3/uL (1.5-5.0); LYMPH % 28.4 % (24.0-44.0); MEAN CORPUSCULAR HEMOGLOBIN 31.1 pg (27.0-33.0); MEAN CORPUSCULAR HGB CONC 32.5 g/dl (32.0-36.5); MEAN CORPUSCULAR VOLUME 95.6 fl (80.0-96.0); MONO # 0.4 10^3/uL (0.0-0.8); NEUTROPHILS # 3.7 10^3/uL (1.5-8.5); PLATELET COUNT, AUTOMATED 241 10^3/uL (150-450); RED BLOOD COUNT 3.83 10^6/uL (4.00-5.40); WHITE BLOOD COUNT 5.8 10^3/uL (4.0-10.0)
[2022-12-20 18:13] LABS: THYROID STIMULATING HORMONE 1.084 uIU/ML (0.55-4.78)
[2022-12-20 18:14] LABS: FERRITIN 8.4 NG/ML (7.3-270.7)
[2022-12-20 18:15] LABS: TOTAL 25(OH) VITAMIN D 40.9 NG/ML (20.0-100.0)
[2022-12-20 18:16] LABS: PERCENT SATURATION 9.8 % (13.2-45.0)
== END ==
LOC: M LAB REF 16:19
PROVIDERS: ATTEND Nurse Practitioner Family
DX: R53.83 Other fatigue (principal)

== ENCOUNTER → 2023-01-19 | Outpatient (REF) | payer OTHER ==
[2023-01-19 16:57] LABS: BASO % 0.3 % (0.0-1.0); EOS # 0.1 10^3/uL (0.0-0.5); EOS % 0.8 % (0.0-3.0); HEMATOCRIT 35.7 % (36.0-47.0); HEMOGLOBIN 11.7 g/dl (12.0-15.5); LYMPH % 31.9 % (24.0-44.0); MEAN CORPUSCULAR HEMOGLOBIN 31.3 pg (27.0-33.0); MEAN CORPUSCULAR HGB CONC 32.8 g/dl (32.0-36.5); MEAN CORPUSCULAR VOLUME 95.5 fl (80.0-96.0); MONO # 0.4 10^3/uL (0.0-0.8); MONO % 6.2 % (2.0-8.0); NEUTROPHILS # 3.7 10^3/uL (1.5-8.5); NEUTROPHILS % 60.5 % (36.0-66.0); PLATELET COUNT, AUTOMATED 240 10^3/uL (150-450); RED BLOOD COUNT 3.74 10^6/uL (4.00-5.40); WHITE BLOOD COUNT 6.2 10^3/uL (4.0-10.0)
[2023-01-19 17:31] LABS: BLOOD UREA NITROGEN 17 MG/DL (9-23); CALCIUM LEVEL 8.2 MG/DL (8.5-10.1); CARBON DIOXIDE LEVEL 25 MMOL/L (20-31); CHLORIDE LEVEL 111 MMOL/L (98-107); CREATININE FOR GFR 0.61 MG/DL (0.55-1.30); GLOMERULAR FILTRATION RATE > 60.0 (>58); GLUCOSE, FASTING 83 MG/DL (60-100); IRON (FE) 66 UG/DL (50-170); MAGNESIUM LEVEL 2.1 MG/DL (1.8-2.4); PERCENT SATURATION 19.7 % (13.2-45.0); POTASSIUM SERUM 5.5 MMOL/L (3.5-5.1); SODIUM LEVEL 141 MMOL/L (136-145); TOTAL IRON BINDING CAPACITY 335 UG/DL (250-425)
== END ==
LOC: M LAB REF 16:33
PROVIDERS: ATTEND Nurse Practitioner Family
DX: E61.1 Iron deficiency (principal)

== ENCOUNTER → 2023-01-26 | Outpatient (REF) | payer OTHER, MEDICAID | LOC: M LAB REF 16:27 | PROVIDERS: ATTEND Nurse Practitioner Family | DX: E87.5 Hyperkalemia (principal) ==

== ENCOUNTER → 2023-03-07 | Outpatient (REF) | payer OTHER, MEDICAID | LOC: M LAB REF 16:25 | PROVIDERS: ATTEND Nurse Practitioner Family | DX: E61.1 Iron deficiency (principal) ==

== ENCOUNTER → 2023-03-08 | Outpatient (CLI) | payer OTHER ==
[~2023-03-08] MED LIST changes: +PROHANCE 279.3MG/ML 5ML VIAL ONE
== END ==
LOC: M PLAIMG 13:14 → MERGE 13:14
PROVIDERS: ATTEND Obstetrics & Gynecology
DX: Z15.01 Genetic susceptibility to malignant neoplasm of breast (principal); Z80.3 Family history of malignant neoplasm of breast
CPT/HCPCS: 77049; A9576

== ENCOUNTER → 2023-04-11 | Outpatient (REF) | payer OTHER, MEDICAID ==
[~2023-04-11] MED LIST changes: -PROHANCE 279.3MG/ML 5ML VIAL ONE
== END ==
LOC: M LAB REF 17:02
PROVIDERS: ATTEND Nurse Practitioner Family
DX: R59.0 Localized enlarged lymph nodes (principal)

== ENCOUNTER → 2023-07-21 | Outpatient (REF) | payer OTHER, MEDICAID | LOC: M LAB REF 16:16 | PROVIDERS: ATTEND Physician Assistant | DX: R39.15 Urgency of urination (principal); R35.0 Frequency of micturition; N39.3 Stress incontinence (female) (male) ==

== ENCOUNTER → 2023-07-22 | Outpatient (REF) | payer OTHER, MEDICAID ==
[2023-07-22 16:53] LABS: BLOOD UREA NITROGEN 14 MG/DL (9-23); CALCIUM LEVEL 8.4 MG/DL (8.5-10.1); CARBON DIOXIDE LEVEL 27 MMOL/L (20-31); CHLORIDE LEVEL 108 MMOL/L (98-107); CHOLESTEROL LEVEL 172 MG/DL (<200); CHOLESTEROL RISK RATIO 3.63 (<5); CREATININE FOR GFR 0.61 MG/DL (0.55-1.30); GLOMERULAR FILTRATION RATE > 60.0 (>58); GLUCOSE, FASTING 80 MG/DL (60-100); HDL CHOLESTEROL 47.3 MG/DL (>40); IRON (FE) 44 UG/DL (50-170); LDL CHOLESTEROL 116.5 MG/DL (<100); NON-HDL-C 124.7 MG/DL; PERCENT SATURATION 15.4 % (13.2-45.0); POTASSIUM SERUM 3.8 MMOL/L (3.5-5.1); SODIUM LEVEL 141 MMOL/L (136-145); TOTAL IRON BINDING CAPACITY 285 UG/DL (250-425); TRIGLYCERIDES LEVEL 41 MG/DL (<150); VITAMIN B12 LEVEL 415 PG/ML (211-911)
[2023-07-22 16:54] LABS: FERRITIN 19.1 NG/ML (7.3-270.7); THYROID STIMULATING HORMONE 0.882 uIU/ML (0.55-4.78)
[2023-07-22 16:56] LABS: FOLATE > 24.0 NG/ML (>5.4)
[2023-07-22 16:59] LABS: BASO % 0.2 % (0.0-1.0); EOS # 0.1 10^3/uL (0.0-0.5); EOS % 1.1 % (0.0-3.0); HEMATOCRIT 36.1 % (36.0-47.0); HEMOGLOBIN 11.9 g/dl (12.0-15.5); LYMPH # 1.6 10^3/uL (1.5-5.0); LYMPH % 34.5 % (24.0-44.0); MEAN CORPUSCULAR HEMOGLOBIN 32.2 pg (27.0-33.0); MEAN CORPUSCULAR VOLUME 97.6 fl (80.0-96.0); MONO # 0.3 10^3/uL (0.0-0.8); MONO % 5.8 % (2.0-8.0); NEUTROPHILS # 2.7 10^3/uL (1.5-8.5); NEUTROPHILS % 58.2 % (36.0-66.0); PLATELET COUNT, AUTOMATED 246 10^3/uL (150-450); WHITE BLOOD COUNT 4.7 10^3/uL (4.0-10.0)
== END ==
LOC: M LAB REF 16:10
PROVIDERS: ATTEND Physician Assistant
DX: D50.9 Iron deficiency anemia, unspecified (principal); R39.15 Urgency of urination; Z13.220 Encounter for screening for lipoid disorders

== ENCOUNTER → 2023-07-26 | Outpatient (CLI) | payer OTHER | LOC: M RAD 15:12 | PROVIDERS: ATTEND Obstetrics & Gynecology | DX: R10.2 Pelvic and perineal pain (principal); D25.1 Intramural leiomyoma of uterus; D25.2 Subserosal leiomyoma of uterus; N88.8 Other specified noninflammatory disorders of cervix uteri ==

== ENCOUNTER → 2023-08-15 | Outpatient (REF) | payer SELFPAY | LOC: M SFHCWAGY 11:13 | PROVIDERS: ATTEND Obstetrics & Gynecology | DX: Z12.4 Encounter for screening for malignant neoplasm of cervix (principal) | CPT/HCPCS: 87624; G0123 ==

== ENCOUNTER → 2023-08-15 | Outpatient (CLI) | payer MEDICAID, OTHER, SELFPAY | LOC: M WHC 10:15 | PROVIDERS: ATTEND Obstetrics & Gynecology | DX: Z12.31 Encounter for screening mammogram for malignant neoplasm of breast (principal); Z15.01 Genetic susceptibility to malignant neoplasm of breast; R92.333 Mammographic heterogeneous density, bilateral breasts ==

== ENCOUNTER → 2023-12-22 | Outpatient (REF) | payer SELFPAY ==
[2023-12-22 18:46] LABS: BASO % 0.2 % (0.0-1.0); EOS % 0.7 % (0.0-3.0); HEMATOCRIT 37.7 % (36.0-47.0); HEMOGLOBIN 12.3 g/dl (12.0-15.5); LYMPH # 1.8 10^3/uL (1.5-5.0); LYMPH % 28.9 % (24.0-44.0); MEAN CORPUSCULAR HEMOGLOBIN 31.9 pg (27.0-33.0); MEAN CORPUSCULAR HGB CONC 32.6 g/dl (32.0-36.5); MEAN CORPUSCULAR VOLUME 97.7 fl (80.0-96.0); MONO # 0.4 10^3/uL (0.0-0.8); MONO % 6.7 % (2.0-8.0); NEUTROPHILS # 3.8 10^3/uL (1.5-8.5); NEUTROPHILS % 63.2 % (36.0-66.0); PLATELET COUNT, AUTOMATED 227 10^3/uL (150-450); RED BLOOD COUNT 3.86 10^6/uL (4.00-5.40); WHITE BLOOD COUNT 6.1 10^3/uL (4.0-10.0)
[2023-12-22 19:09] LABS: PERCENT SATURATION 27.1 % (13.2-45.0)
[2023-12-22 19:13] LABS: THYROID STIMULATING HORMONE 1.172 uIU/ML (0.55-4.78)
[2023-12-22 19:15] LABS: FERRITIN 27.8 NG/ML (7.3-270.7)
== END ==
LOC: M LAB REF 17:01
PROVIDERS: ATTEND Physician Assistant
DX: D50.9 Iron deficiency anemia, unspecified (principal)

== ENCOUNTER → 2024-04-09 | Outpatient (REF) | payer SELFPAY | LOC: M LAB REF 16:04 | PROVIDERS: ATTEND Physician Assistant | DX: J02.9 Acute pharyngitis, unspecified (principal) ==

== ENCOUNTER → 2024-05-01 | Outpatient (CLI) | payer SELFPAY ==
[~2024-05-01] MED LIST changes: +PROHANCE 279.3MG/ML 15ML VIAL ONE
== END ==
LOC: M PLAIMG 10:22
PROVIDERS: ATTEND Obstetrics & Gynecology
DX: Z12.39 Encounter for other screening for malignant neoplasm of breast (principal); N63.20 Unspecified lump in the left breast, unspecified quadrant; R92.30 Dense breasts, unspecified
CPT/HCPCS: A9576; C8908

== ENCOUNTER → 2024-11-28 | Outpatient (CLI) | payer OTHER ==
[~2024-11-28] MED LIST changes: -IBUP-1022 PO; +IBUP600T42 PO; -PROHANCE 279.3MG/ML 15ML VIAL ONE
== END ==
LOC: M WHC 14:56
PROVIDERS: ATTEND Obstetrics & Gynecology
DX: N63.10 Unspecified lump in the right breast, unspecified quadrant (principal); Z53.9 Procedure and treatment not carried out, unspecified reason

== ENCOUNTER → 2024-11-29 | Outpatient (CLI) | payer OTHER | LOC: M WHC 11-26 10:35 | PROVIDERS: ATTEND Obstetrics & Gynecology | DX: N63.10 Unspecified lump in the right breast, unspecified quadrant (principal) | CPT/HCPCS: 76642; 77066; G0279 ==

== ENCOUNTER → 2024-12-12 | Outpatient (REF) | payer OTHER ==
[2024-12-12 19:30] LABS: BASO # 0.0 10^3/uL (0.0-0.2); BASO % 0.2 % (0.0-1.0); EOS # 0.1 10^3/uL (0.0-0.5); EOS % 1.1 % (0.0-3.0); LYMPH # 1.8 10^3/uL (1.5-5.0); LYMPH % 34.0 % (24.0-44.0); MONO # 0.4 10^3/uL (0.0-0.8); MONO % 6.6 % (2.0-8.0); NEUTROPHILS # 3.1 10^3/uL (1.5-8.5); NEUTROPHILS % 57.9 % (36.0-66.0); PLATELET COUNT, AUTOMATED 255 10^3/uL (150-450)
[2024-12-12 19:37] LABS: ALT/SGPT 14 U/L (7.0-40); AST/SGOT 15 U/L (<34); CALCIUM LEVEL 9.0 MG/DL (8.5-10.1); CARBON DIOXIDE LEVEL 26 MMOL/L (20-31); CHLORIDE LEVEL 108 MMOL/L (98-107); CHOLESTEROL LEVEL 210 MG/DL (<200); CHOLESTEROL RISK RATIO 3.94 (<5); CREATININE FOR GFR 0.66 MG/DL (0.55-1.30); GLOMERULAR FILTRATION RATE > 90.0 (>58); IRON (FE) 83 UG/DL (50-170); LDL CHOLESTEROL 139.6 MG/DL (<100); NON-HDL-C 156.8 MG/DL; PERCENT SATURATION 26.9 % (13.2-45.0); POTASSIUM SERUM 5.0 MMOL/L (3.5-5.1); SODIUM LEVEL 143 MMOL/L (136-145); TRIGLYCERIDES LEVEL 86 MG/DL (<150)
== END ==
LOC: M LAB REF 18:05
PROVIDERS: ATTEND Physician Assistant
DX: E61.1 Iron deficiency (principal); E78.5 Hyperlipidemia, unspecified